=== PATIENT | female | born 1980 | race Caucasian/White ===

== ENCOUNTER → 2023-10-18 08:12 | Outpatient (REF) | payer BC, SELFPAY | LOC: HWRAD 08:12 | PROVIDERS: ATTENDING PHYSICIAN Family Medicine | DX: E03.9 Hypothyroidism, unspecified (principal) | CPT/HCPCS: 76536 ==

== ENCOUNTER 2023-11-26 12:42 | Emergency (ER) | payer BC, SELFPAY ==
[2023-11-26 12:43] VITALS: BP 163/96
--- NOTE | 2023-11-26 13:35 | ED.MUSCINJ ---
HPI-Injury
General
Chief Complaint: Fall
Source: patient
Exam Limitations: none
Time Seen by Provider: 11/26/23 13:07
History of Present Illness-Injury
Initial Injury comments:
43-year-old female presents with laceration to left posterior thigh she sustained yesterday. She fell on a log and cut her leg. She was in the [employer] when this happened. Last tetanus shot was about a year and a half ago. No other complaints at
this time
Past History
Past History
ED Past Medical History: Asthma, GERD, Hypothyroidism, Other (endometriosis) and Other (Sjogrens, anemia)
ED Past Surgical History: Cholecystectomy and Gynecological (hysterectomy)
Social History
Tobacco: Non-smoker
Personal: Single
Living: with family
Employment: Employed
Family History
Family History: Other (noncontrib)
Phy Exam
Physical Exam
Physical Exam:
General: Well-appearing female no acute respiratory distress
HEENT: Normocephalic atraumatic
Skin: 2 cm laceration surrounded by abrasion to the posterior left thigh. There is no associated foreign bodies. The wound was inspected down to the deepest layer. It is involving the fatty tissue.
MDM/Problems Addressed
Differential Diagnosis Includes:
Laceration left posterior thigh. Wound was inspected under adequate lighting. There was no retained foreign body. The wound was copiously irrigated and closed with 4-0 Prolene sutures in a simple erupted fashion. 3 sutures were required to do
so. No indication for tetanus vaccine. Patient has multiple antibiotic adverse reactions or allergies. Given nature of wound would prefer to treat with antibiotics. Will do Cipro.
*Critical Care Note
Total Time (30-74mins, 75-104mins- exclusive of procedures): Not Applicable
ED Attending Note
-
Portions of this chart may have been created with voice recognition software.� Occasional wrong word or��sound alike� substitutions may have occurred due to the inherent limitations of voice recognition software.
Discharge Plan
Departure
Patient Disposition: Home (Routine Discharge)
Date of Disposition: 11/26/23
Time of Disposition: 13:43
Patient with high blood pressure during this ER visit?: No
Discharge Problem:
Laceration
Instructions: Laceration Repair With Stitches (DC)
Prescriptions:
New
ciprofloxacin HCl [Cipro] 500 mg tablet
500 mg PO BID Qty: 14 0RF
No Action
cetirizine [Zyrtec] 10 MG tablet
10 mg PO HS
pantoprazole 40 MG tablet,delayed release (DR/EC)
40 mg PO DAILY
montelukast 10 MG tablet
10 mg PO DAILY
albuterol sulfate [Proventil HFA] 90 MCG/PUFF HFA aerosol inhaler
1 puff inhalation PRN PRN (Reason: sob)
fluticasone propionate 1 SPRAY spray,suspension
1 spray intranasal DAILY PRN (Reason: CONGESTION)
budesonide-formoterol [Symbicort] 1 PUFF HFA aerosol inhaler
2 puff inhalation R BID
levothyroxine 100 MCG capsule
100 mcg PO DAILY
ibuprofen 600 MG tablet
600 mg PO Q4HPRN PRN (Reason: mild cramps) 0RF
docusate sodium 100 MG capsule
100 mg PO BIDPRN PRN (Reason: STOOL SOFTENER) 0RF
levofloxacin in D5W 750 MG/150 ML piggyback
750 mg PO DAILY 14 Days Qty: 14 0RF
metronidazole in NaCl (iso-os) 500 MG/100 ML piggyback
500 mg PO BID 7 Days Qty: 14 0RF
metronidazole 500 mg Tablet
500 mg PO TID Qty: 21 0RF
ciprofloxacin HCl 500 mg Tablet
500 mg PO BID Qty: 14 0RF
Activity Restrictions/Additional Instructions:
Keep clean. Have sutures removed in 10 days. Take antibiotic as directed. Return if needed.
Interventions
Interventions:
*Risk Screen - Suicide Last Done: 11/26/23 12:43
*Neglect/Abuse Screening Last Done: 11/26/23 12:43
Discharge Date and Time
Print Language: NEPALI
[2023-11-26 13:47] VITALS: BP 165/89
== END 2023-11-26 14:00 | disposition home or self-care (01) ==
LOC: EMR 12:42
PROVIDERS: EMERGENCY PHYSICIAN Student in an Organized Health Care Education/Training Program; FAMILY PHYSICIAN Family Medicine
DX: S71.112A Laceration without foreign body, left thigh, initial encounter (principal); W17.89XA Other fall from one level to another, initial encounter; E03.9 Hypothyroidism, unspecified; K21.9 Gastro-esophageal reflux disease without esophagitis; J45.909 Unspecified asthma, uncomplicated; M35.00 Sjogren syndrome, unspecified; Z90.49 Acquired absence of other specified parts of digestive tract; Z88.1 Allergy status to other antibiotic agents; Z88.5 Allergy status to narcotic agent; Z88.2 Allergy status to sulfonamides; Z91.048 Other nonmedicinal substance allergy status
CPT/HCPCS: 99283; 12001